=== PATIENT | male | born 1965 ===

== ENCOUNTER 2020-08-14 19:50 | Outpatient (CLI) | payer OTHER | END 2020-08-14 19:56 | disposition home or self-care (01) | LOC: PPH VACUNA 19:50 | PROVIDERS: ATTEND Emergency Medicine Pediatric Emergency Medicine | DX: Z23 Encounter for immunization (principal) ==

== ENCOUNTER → 2020-09-04 14:27 | Outpatient (CLI) | payer OTHER | END | disposition home or self-care (01) | LOC: PPH VACUNA 14:27 | PROVIDERS: ATTEND Emergency Medicine Pediatric Emergency Medicine | DX: Z23 Encounter for immunization (principal) ==